=== PATIENT | female | born 1950 | race Caucasian/White ===

== ENCOUNTER → 2017-07-13 | Outpatient (CLI) | payer BC | LOC: M WUC 10:13 | DX: R05 Cough (principal) | CPT/HCPCS: 71046 ==

== ENCOUNTER → 2017-11-25 | Outpatient (CLI) | payer BC | LOC: M WUC 09:08 | DX: J20.9 Acute bronchitis, unspecified (principal) | CPT/HCPCS: 71046 ==

== ENCOUNTER → 2022-03-08 | Outpatient (CLI) | payer BC, MEDICARE | LOC: M WUC 14:10 | PROVIDERS: ATTEND Registered Nurse | DX: M51.9 Unspecified thoracic, thoracolumbar and lumbosacral intervertebral disc disorder (principal); M25.551 Pain in right hip ==

== ENCOUNTER → 2023-12-03 | Outpatient (REF) | payer MEDICARE | LOC: M LAB REF 17:21 | PROVIDERS: ATTEND Physician Assistant Medical | DX: M15.9 Polyosteoarthritis, unspecified (principal) ==

== ENCOUNTER 2023-12-19 09:55 | Emergency (ER) | payer MEDICARE ==
[~2023-12-19] VITALS: Ht 175.3 cm; Wt 117.7 kg
[2023-12-19] MEDS ORDERED: IRBE300T12 (10:04)
[2023-12-19] MEDS ORDERED: METO1TAB32 (10:04)
[2023-12-19] MEDS ORDERED: ASPI81CH33 PO (10:39)
[2023-12-19] MEDS: ONDANSETRON 4MG 2ML VIAL IV ONE (11:06)
[2023-12-19] MEDS: NS 500 ML IV ONE ×2 (11:07→12:02)
[2023-12-19 11:13] LABS: BASO % 0.2 % (0.0-1.0); HEMATOCRIT 44.5 % (36.0-47.0); LYMPH # 1.1 10^3/uL (1.5-5.0); LYMPH % 7.2 % (24.0-44.0); MEAN CORPUSCULAR HEMOGLOBIN 30.9 pg (27.0-33.0); MEAN CORPUSCULAR HGB CONC 33.7 g/dl (32.0-36.5); MEAN CORPUSCULAR VOLUME 91.8 fl (80.0-96.0); MONO # 0.8 10^3/uL (0.0-0.8); MONO % 5.5 % (2.0-8.0); NEUTROPHILS # 13.2 10^3/uL (1.5-8.5); NEUTROPHILS % 86.7 % (36.0-66.0); PLATELET COUNT, AUTOMATED 212 10^3/uL (150-450); RED BLOOD COUNT 4.85 10^6/uL (4.00-5.40); WHITE BLOOD COUNT 15.2 10^3/uL (4.0-10.0)
[2023-12-19] MEDS: KETOROLAC 30 MG/ML 1ML VIAL IV ONE (11:18)
[2023-12-19 11:40] LABS: LIPASE 27 U/L (12-53)
[2023-12-19 11:42] LABS: ALBUMIN 3.8 G/DL (3.2-5.2); ALKALINE PHOSPHATASE 95 U/L (46-116); ALT/SGPT 22 U/L (7.0-40); AST/SGOT 18 U/L (<34); BILIRUBIN,DIRECT 0.3 MG/DL (<0.4); BILIRUBIN,TOTAL 0.8 MG/DL (0.3-1.2); BLOOD UREA NITROGEN 14 MG/DL (9-23); CALCIUM LEVEL 9.5 MG/DL (8.3-10.6); CARBON DIOXIDE LEVEL 28 MMOL/L (20-31); CHLORIDE LEVEL 102 MMOL/L (98-107); CREATININE FOR GFR 0.67 MG/DL (0.55-1.30); GLOMERULAR FILTRATION RATE > 60.0 (>39); GLUCOSE, FASTING 132 MG/DL (74-106); POTASSIUM SERUM 3.7 MMOL/L (3.5-5.1); SODIUM LEVEL 142 MMOL/L (136-145); TOTAL PROTEIN 6.8 G/DL (5.7-8.2)
[2023-12-19] MEDS: METOCLOPRAMIDE INJ 10MG/2ML VIAL IV ONE (12:02)
[2023-12-19] MEDS: NS 1,000 ML IV ONE (12:40)
[2023-12-19] MEDS ORDERED: METO1TAB7 PO (12:46)
[2023-12-19 13:00] LABS: CK-MB VALUE MASS < 1.0 NG/ML (<3.6)
[2023-12-19 13:02] LABS: CPK CREATINE PHOSPHOKINASE 53 U/L (34-145); MB/CK RELATIVE INDEX 1.88 (< OR =4)
[2023-12-19] MEDS: LIDOCAINE 2% 5ML JELLY UROJET TOP ONE (13:20)
[2023-12-19] MEDS ORDERED: ELIQ5TAB PO (15:07)
[2023-12-19 15:09] VITALS: BP 132/68; TEMP 99.3; O2SAT 97
[2023-12-19] MEDS ORDERED: ONDA-282 PO (15:09)
[2023-12-19] MEDS ORDERED: CIPR-249 PO (15:28)
== END 2023-12-19 15:28 | disposition home or self-care (01) ==
LOC: M ED 09:55
DX: I48.91 Unspecified atrial fibrillation (principal); R31.9 Hematuria, unspecified; R10.9 Unspecified abdominal pain; R11.2 Nausea with vomiting, unspecified; I10 Essential (primary) hypertension; Z79.82 Long term (current) use of aspirin; Z79.899 Other long term (current) drug therapy; Z88.0 Allergy status to penicillin; Z88.2 Allergy status to sulfonamides
CPT/HCPCS: 51701; 74176; 80048; 80076; 81001; 82550; 82553; 83690; 84484; 85025; 93005; 96361; 96374; 96375; 99284; J1885; J2405; J2765

== ENCOUNTER → 2024-02-17 | Outpatient (CLI) | payer MEDICARE ==
[~2024-02-17] MED LIST: ASPI81CH33 PO; CIPR-249 PO; ELIQ5TAB PO; IRBE300T12; METO1TAB32; METO1TAB7 PO; ONDA-282 PO
== END ==
LOC: M WUC 10:56
PROVIDERS: ATTEND Physician Assistant
DX: Z01.818 Encounter for other preprocedural examination (principal)

== ENCOUNTER → 2024-02-25 | Outpatient (REF) | payer MEDICARE ==
[~2024-02-25] MED LIST changes: -IRBE300T12; +IRBE300T12 PO; +METO1TAB33 PO
[2024-02-25 17:11] LABS: APPEARANCE, URINE CLOUDY (CLEAR); BACTERIA, URINE AUTO 3+ (NEGATIVE); BILIRUBIN, URINE AUTO NEGATIVE (NEGATIVE); BLOOD, URINE BLOOD 3+ (NEGATIVE); COLOR, URINE YELLOW (YELLOW); GLUCOSE, URINE (UA) AUTO NEGATIVE (NEGATIVE); KETONE, URINE AUTO NEGATIVE (NEGATIVE); LEUKOCYTE ESTERASE, URINE AUTO NEGATIVE (NEGATIVE); MUCUS, URINE SMALL (NEGATIVE); NITRITE, URINE AUTO NEGATIVE (NEGATIVE); PROTEIN, URINE AUTO NEGATIVE (NEGATIVE); RBC, URINE AUTO 6 /HPF (0-3); SPECIFIC GRAVITY URINE AUTO 1.008 (1.002-1.035); SQUAMOUS EPITHELIAL CELL UR AU 19 /HPF (0-6); UROBILINOGEN, URINE AUTO 0.2 mg/dL (0.0-2.0); WBC, URINE AUTO 2 /HPF (0-3)
== END ==
LOC: M LAB REF 16:16
PROVIDERS: ATTEND Internal Medicine
DX: Z01.818 Encounter for other preprocedural examination (principal); N39.0 Urinary tract infection, site not specified

== ENCOUNTER 2024-03-06 10:22 | Day surgery (SDC) | payer MEDICARE ==
[~2024-03-06] VITALS: Ht 175.3 cm; Wt 113.3 kg
[2024-03-06] MEDS ORDERED: LR 1,000 ML IV SCH ×2 (11:05→15:05)
[2024-03-06] MEDS ORDERED: LIDOCAINE 2% 100MG/5ML SDV (FOR ANES.) As Ordered ONE (12:51)
[2024-03-06] MEDS ORDERED: MIDAZOLAM INJ 2MG/2ML VIAL As Ordered ONE (12:51)
[2024-03-06] MEDS ORDERED: propofoL 200 MG/20 ML VIAL As Ordered ONE (12:51)
[2024-03-06] MEDS ORDERED: fentaNYL 100 MCG/2 ML INJECTION As Ordered ONE (12:51)
[2024-03-06] MEDS ORDERED: ONDANSETRON 4MG 2ML VIAL As Ordered ONE (12:51)
[2024-03-06] MEDS ORDERED: ACETAMINOPHEN 1000MG 100ML IV BAG As Ordered ONE (12:52)
[2024-03-06] MEDS: ceFAZolin SOD 2 GM in IV 1 EA IV ONE (13:55)
[2024-03-06] MEDS: ISOVUE-300 61% 100ML VIAL As Ordered ONE (14:09)
[2024-03-06] MEDS ORDERED: PHENYLephrine 500MCG 5ML (100MCG/ML) SYRINGE As Ordered ONE (14:22)
[2024-03-06] MEDS ORDERED: FLOM0.4C39 PO (15:27)
[2024-03-06] MEDS ORDERED: OXYB5TAB14 PO (15:27)
[2024-03-06] MEDS: oxyCODONE 5MG TAB PO PRN (15:38)
[2024-03-06] MEDS: ONDANSETRON 4MG 2ML VIAL IV PRN (15:57)
[2024-03-06] MEDS: fentaNYL 100 MCG/2 ML INJECTION IV PRN (15:59)
[2024-03-06] MEDS ORDERED: HYDROMORPHONE HCL 0.5 MG/ 0.5 ML SYRINGE IV PRN (16:30)
[2024-03-06] MEDS: METOCLOPRAMIDE INJ 10MG/2ML VIAL IV STA (17:45)
[2024-03-06 18:45] VITALS: BP 127/78; TEMP 97.3; O2SAT 96
== END 2024-03-06 19:00 | disposition home or self-care (01) ==
LOC: M SDC 10:22
PROVIDERS: ATTEND Urology
DX: N20.0 Calculus of kidney (principal); R31.0 Gross hematuria; I48.91 Unspecified atrial fibrillation; Z68.38 Body mass index [BMI] 38.0-38.9, adult; Z88.0 Allergy status to penicillin; Z88.2 Allergy status to sulfonamides; Z79.899 Other long term (current) drug therapy; Z87.891 Personal history of nicotine dependence
CPT/HCPCS: 52356; 76000; 82365; C1769; C1894; C2617; J0131; J0690; J1100; J2250; J2371; J2405; J2765; J3010; Q9967

== ENCOUNTER → 2024-09-09 | Outpatient (CLI) | payer MEDICARE ==
[~2024-09-09] MED LIST changes: +FLOM0.4C39 PO; +OXYB5TAB14 PO
== END ==
LOC: M WUC 08:13
PROVIDERS: ATTEND Urology
DX: N20.0 Calculus of kidney (principal)

== ENCOUNTER → 2025-03-10 | Outpatient (CLI) | payer MEDICARE ==
[~2025-03-10] MED LIST changes: -FLOM0.4C39 PO; +TAMS-18 PO
== END ==
LOC: M WUC 09:16
PROVIDERS: ATTEND Nurse Practitioner Family
DX: N20.0 Calculus of kidney (principal)